=== PATIENT | male | born 1990 | race Two or more races ===

== ENCOUNTER 2016-07-31 08:05 | Emergency (ER) | payer MEDICAID ==
[~2016-07-31] VITALS: Ht 167.6 cm; Wt 65.8 kg
[2016-07-31 08:24] VITALS: BP 142/86
[2016-07-31] MEDS ORDERED: HYDROmorphone HCL 2 MG/ML VL IM ONE (08:45)
[2016-07-31] MEDS ORDERED: ONDANSETRON HCL 4 MG/2 ML VIAL IM ONE (08:45)
== END 2016-07-31 10:19 | disposition home or self-care (01) ==
LOC: ER 08:05
DX: S33.5XXA Sprain of ligaments of lumbar spine, initial encounter (principal); M54.5 Low back pain; G89.29 Other chronic pain; W19.XXXA Unspecified fall, initial encounter; Y93.89 Activity, other specified; Y99.8 Other external cause status; Y92.89 Other specified places as the place of occurrence of the external cause
CPT/HCPCS: 72110; 96372; 99284; J1170; J2405

== ENCOUNTER 2017-03-03 10:15 | Emergency (ER) | payer MEDICAID ==
[~2017-03-03] VITALS: Ht 167.6 cm; Wt 65.8 kg
[2017-03-03 10:47] VITALS: BP 121/77
[2017-03-03] MEDS ORDERED: KETOROLAC TROMETH 60MG/2ML VIAL IM ONE (11:15)
== END 2017-03-03 11:41 | disposition home or self-care (01) ==
LOC: ER 10:15
DX: S39.012A Strain of muscle, fascia and tendon of lower back, initial encounter (principal); X50.1XXA Overexertion from prolonged static or awkward postures, initial encounter; Y93.89 Activity, other specified; Y99.8 Other external cause status; Y92.89 Other specified places as the place of occurrence of the external cause
CPT/HCPCS: 96372; 99283; J1885

== ENCOUNTER 2018-12-11 20:40 | Emergency (ER) | payer SELFPAY ==
[~2018-12-11] VITALS: Ht 167.6 cm; Wt 65.8 kg
[2018-12-11 23:01] VITALS: BP 111/89
[2018-12-11] MEDS ORDERED: cefTRIAXone SOD 1,000 MG VL IM ONE (23:30)
[2018-12-11] MEDS ORDERED: LIDOCAINE 1% HCL (LOCAL ANESTH.) INJ 20ML MDV IJ ONE (23:30)
== END 2018-12-12 00:11 | disposition home or self-care (01) ==
LOC: ER 20:43
DX: B02.9 Zoster without complications (principal); I88.9 Nonspecific lymphadenitis, unspecified
CPT/HCPCS: 96372; 99283; J0696; J2001